=== PATIENT | female | born 1990 | race Caucasian/White ===

== ENCOUNTER 2020-03-31 08:05 | Outpatient (CLI) | payer OTHER, SELFPAY ==
--- NOTE | ~2020-03-31 | CT_ITS ---
EXAMINATION: CT abdomen pelvis wo/w con DATE: 03/31/2020 08:51 INDICATION: Right hydronephrosis TECHNIQUE: Computed tomography (CT) of the abdomen and pelvis was performed without and subsequently with 130 cc Omnipaque 350 intravenous contrast. Automated exposure control and iterative reconstructi on technique were employed. Exam dose: 534.53 mGy-cm total exam DLP. COMPARISON: None. FINDINGS: The lung bases are clear. Pectus excavatum. Normal heart size. No pericardial or pleural effusion. 5 mm hepatic cyst. There are several probable right renal cyst measuring up to 6 mm maximal dimension. Otherwise no hepatic, splenic, pancreatic, adrenal or renal space-occupying mass lesion is evident. T he gallbladder is present. No bile duct or pancreatic duct dilatation. There is mild prominence of th e renal collecting systems, but no urinary tract obstruction is evident. Normal caliber of the abdominal aorta. No intraperitoneal or retroperitoneal or pelvic mass lesion or adenopathy. No CT evidence of appendicitis. There is a prominent amount of fecal material in the colon but no bow el obstruction, bowel wall thickening, pneumatosis or intraperitoneal free air. Retroverted mildly enlarged uterus. Up to approximately 1.6 cm right ovarian cyst. There is mild free fluid in the right greater than le ft cul de sac. Included skeletal structures are unremarkable. IMPRESSION: 5 mm hepatic cyst Up to 6 mm right renal cysts Reviewed, dictated and finalized at [facility]. Reviewed, dictated and finalized at [facility].
== END 2020-03-31 08:06 | disposition home or self-care (01) ==
LOC: ANHIMG 08:09
PROVIDERS: PCP Internal Medicine; Visit Provider Internal Medicine
DX: N13.30 Unspecified hydronephrosis (principal); R19.8 Other specified symptoms and signs involving the digestive system and abdomen; K76.89 Other specified diseases of liver; N28.1 Cyst of kidney, acquired
CPT/HCPCS: 74178; Q9967